=== PATIENT | female | born 1950 | race Caucasian/White ===

== ENCOUNTER 2017-01-06 02:18 | Inpatient (IN) ==
[2017-01-06] MEDS ORDERED: IPRATROPIUM/ALBUTEROL 3 ML AMPUL.NEB NEB ONE (02:36)
[2017-01-06] MEDS ORDERED: methylPREDNISolone SOD SUCC 125 MG/2 ML VIAL IV ONE (02:44)
[2017-01-06] MEDS ORDERED: 0.9 % SODIUM CHLORIDE 1,000 ML IV ONE (02:44)
[2017-01-06] MEDS ORDERED: ALBUTEROL SULFATE 5 MG/ML NEB SOLUTION BOTTLE NEB ONE (02:46)
[2017-01-06 03:56] LABS: Basophils # (Auto) 0.1 K/mcL (0.0-0.3); Basophils % (Auto) 0.5 % (0.0-2.0); Eosinophils # (Auto) 0.4 K/mcL (0.0-0.7); Eosinophils % (Auto) 2.4 % (0.0-7.0); Granulocytes % (Auto) 82.1 % (38.0-78.0); Lymphocytes # (Auto) 1.4 K/mcL (1.5-4.8); Lymphocytes % (Auto) 8.2 % (15.5-49.0); Mean Cell Volume 97.9 fL (80.0-100.0); Mean Corpuscular HGB Conc 31.5 g/dL (31.0-36.0); Mean Corpuscular Hemoglobin 30.8 pg (26.0-34.0); Monocytes # (Auto) 1.1 K/mcL (0.1-0.9); Monocytes % (Auto) 6.8 % (1.0-12.0); Platelet Count 378 K/mcL (140-440); Red Cell Distribution Width 16.2 % (11.5-14.5)
[2017-01-06 04:09] LABS: ALT/SGPT 8 U/l (0-40); Albumin 3.7 gm/dL (3.2-5.2); Albumin/Globulin Ratio 1.1 (1.0-2.3); Alkaline Phosphatase 89 U/L (39-117); Blood Urea Nitrogen 19 mg/dl (8-23); Magnesium 1.9 mg/dL (1.6-2.5)
[2017-01-06] MEDS ORDERED: VANCOMYCIN 1,000 MG in 0.9 % SODIUM CHLORIDE 250 ML IV ONE ×2 (04:31→05:43)
[2017-01-06] MEDS ORDERED: PIPERACILLIN SODIUM/TAZOBACTAM 3.375 GM in DEXTROSE 5% IN WATER 50 ML IV ONE ×2 (04:31→05:43)
--- NOTE | 2017-01-06 04:37 | Emergency Department Note ---
SOB HPI - General Chief Complaint: Shortness of Breath/Dyspnea Stated Complaint: Cough/Short of breath Time Seen by Provider: 01/06/17 02:36 Source: patient Limitations: no limitations - History of Present Illness 66-year-old female with a chronic cough for the last 6 months that has been slowly worsening. Currently it is tight and very productive such that she is coughing up large amounts of sputum for the last couple days. There is some blood-tinged to her mucus. She notes some nausea but not fever. She is on Coumadin for atrial fibrillation. Her current cough is so severe that she is unable to smoke much anymore nor eat - Related Data Home Medications Medication Instructions Recorded Confirmed Allopurinol [Zylopriim] 300 mg PO DAILY 01/06/17 01/06/17 Aspirin [Adult Low Dose Aspirin EC] 81 mg PO DAILY 01/06/17 01/06/17 Diltiazem HCl [Cartia Xt] 180 mg PO DAILY 01/06/17 01/06/17 Furosemide [Lasix] 40 mg PO BID 01/06/17 01/06/17 Levothyroxine [Synthroid] 137 mcg PO DAILY 01/06/17 01/06/17 Lisinopril [Zestril] 20 mg PO BID 01/06/17 01/06/17 Metolazone [Zaroxolyn] 2.5 mg PO DAILY 01/06/17 01/06/17 Metoprolol Tartrate 100 mg PO BID 01/06/17 01/06/17 Pravastatin Sodium [Pravachol] 80 mg PO HS 01/06/17 01/06/17 Warfarin Sodium [Jantoven] 2 mg PO DAILY 01/06/17 01/06/17 metFORMIN HCL [Glucophage] 500 mg PO BID 01/06/17 01/06/17 Allergies Allergy/AdvReac Type Severity Reaction Status Date / Time No Known Drug Allergies Allergy Verified 01/06/17 02:31 Review of Systems All systems ED: reviewed and negative except as stated. Past Medical History - Past Medical History Attestation: Yes: The following information was validated with the patient. Medical history: Reports: atrial fibrillation, CVA, diabetes, hyperlipidemia, hypertension, thyroid disease, other (gout) Surgical history ED: Reports: no surgical history - Social History smoking status: Current every day smoker Physical Exam Patient initially seen with severe cough such that she cannot even take a deep breath without coughing fit-respiratory distress. Hypoxia noted without nasal cannula oxygen. Respiratory status much improved DuoNeb treatment and after 1 hour continuous nebs of albuterol-finally able to breathe without coughing but continues to require oxygen to keep sats above 90% Normocephalic atraumatic. Conjunctive are clear sclerae nonicteric. No nasal discharge but some audible congestion. Oropharynx is pink and moist. Posterior pharynx is clear. Neck is supple without lymphadenopathy or thyromegaly. Heart is irregularly irregular rhythm. After continuous nebs her lungs still have end expiratory wheeze and rhonchi in all [place] however distress is mild now and her cough is irregular. Mild rales. Abdomen soft nontender nondistended. No pedal edema. +2 radial pulse. Alert oriented. No dysarthria or ataxia. Limitations: no limitations Course Vital Signs Temperature 97.8 F 01/06/17 02:19 Pulse Rate 103 H 01/06/17 02:19 Respiratory Rate 26 H 01/06/17 02:19 Pulse Oximetry (%) 87 L 01/06/17 02:19 Temperature 97.8 F 01/06/17 02:19 Pulse Rate 103 H 01/06/17 02:36 Respiratory Rate 26 H 01/06/17 02:36 Pulse Oximetry (%) 87 L 01/06/17 02:19 Shortness of Breath/Dyspnea - Lab Data Lab results reviewed: Yes I reviewed the patient's lab results. Result diagrams: 01/06/17 03:02 01/06/17 03:02 Lab Results 01/06/17 01/06/17 01/06/17 Range/Units 03:02 03:02 03:02 WBC 16.7 H (4.5-11.0) K/mcL RBC 3.30 L (4.00-5.20) M/mcL Hgb 10.2 L (12.0-15.0) g/dL Hct 32.3 L (36.0-48.0) % POC Hct 34.0 L (36.0-48.0) % MCV 97.9 (80.0-100.0) fL MCH 30.8 (26.0-34.0) pg MCHC 31.5 (31.0-36.0) g/dL RDW 16.2 H (11.5-14.5) % Plt Count 378 (140-440) K/mcL MPV 9.0 (7.4-10.4) fL Gran % 82.1 H (38.0-78.0) % Lymph % (Auto) 8.2 L (15.5-49.0) % [place] % (Auto) 6.8 (1.0-12.0) % Eos % (Auto) 2.4 (0.0-7.0) % Baso % (Auto) 0.5 (0.0-2.0) % Gran # 13.7 H (1.8-8.0) K/mcL Lymph # (Auto) 1.4 L (1.5-4.8) K/mcL [place] # (Auto) 1.1 H (0.1-0.9) K/mcL Eos # (Auto) 0.4 (0.0-0.7) K/mcL Baso # (Auto) 0.1 (0.0-0.3) K/mcL PT (11.9-14.5) sec INR (0.9-1.1) VBG Lactic Acid 1.5 (0.5-2.2) mmol/L POC Sodium 140 (133-145) mmol/L Sodium 141 (133-145) mmol/L POC Potassium 3.6 (3.3-5.1) mmol/L Potassium 3.6 (3.3-5.1) mmol/L POC Chloride 100 (96-108) mmol/L Chloride 99 (96-108) mmol/L Carbon Dioxide 28 (22-30) mmol/L POC Total CO2 29 (22-30) mmol/L Anion Gap 14.0 (8-16) POC BUN 18 (8-23) mg/dl BUN 19 (8-23) mg/dl Creatinine 1.1 (0.6-1.1) mg/dl POC Creatinine 1.2 H (0.6-1.1) mg/dl GFR Calculation 52 Glucose 163 H (70-105) mg/dL POC Glucose 162 H (70-105) mg/dL Calcium 9.2 (8.6-10.4) mg/dl POC WB Ioniz Calcium 1.17 (1.16-1.32) mmol/L Magnesium 1.9 (1.6-2.5) mg/dL Total Bilirubin 0.3 (0.0-1.0) mg/dL AST 13 (0-37) U/l ALT 8 (0-40) U/l Alkaline Phosphatase 89 (39-117) U/L NT-Pro-B Natriuret Pep 2447.0 H (0-125) pg/ml Total Protein 7.0 (5.9-8.4) gm/dL Albumin 3.7 (3.2-5.2) gm/dL Globulin 3.3 (2.2-3.7) gm/dL Albumin/Globulin Ratio 1.1 (1.0-2.3) 01/06/17 Range/Units 03:02 WBC (4.5-11.0) K/mcL RBC (4.00-5.20) M/mcL Hgb (12.0-15.0) g/dL Hct (36.0-48.0) % POC Hct (36.0-48.0) % MCV (80.0-100.0) fL MCH (26.0-34.0) pg MCHC (31.0-36.0) g/dL RDW (11.5-14.5) % Plt Count (140-440) K/mcL MPV (7.4-10.4) fL Gran % (38.0-78.0) % Lymph % (Auto) (15.5-49.0) % [place] % (Auto) (1.0-12.0) % Eos % (Auto) (0.0-7.0) % Baso % (Auto) (0.0-2.0) % Gran # (1.8-8.0) K/mcL Lymph # (Auto) (1.5-4.8) K/mcL [place] # (Auto) (0.1-0.9) K/mcL Eos # (Auto) (0.0-0.7) K/mcL Baso # (Auto) (0.0-0.3) K/mcL PT 25.6 H (11.9-14.5) sec INR 2.2 H (0.9-1.1) VBG Lactic Acid (0.5-2.2) mmol/L POC Sodium (133-145) mmol/L Sodium (133-145) mmol/L POC Potassium (3.3-5.1) mmol/L Potassium (3.3-5.1) mmol/L POC Chloride (96-108) mmol/L Chloride (96-108) mmol/L Carbon Dioxide (22-30) mmol/L POC Total CO2 (22-30) mmol/L Anion Gap (8-16) POC BUN (8-23) mg/dl BUN (8-23) mg/dl Creatinine (0.6-1.1) mg/dl POC Creatinine (0.6-1.1) mg/dl GFR Calculation Glucose (70-105) mg/dL POC Glucose (70-105) mg/dL Calcium (8.6-10.4) mg/dl POC WB Ioniz Calcium (1.16-1.32) mmol/L Magnesium (1.6-2.5) mg/dL Total Bilirubin (0.0-1.0) mg/dL AST (0-37) U/l ALT (0-40) U/l Alkaline Phosphatase (39-117) U/L NT-Pro-B Natriuret Pep (0-125) pg/ml Total Protein (5.9-8.4) gm/dL Albumin (3.2-5.2) gm/dL Globulin (2.2-3.7) gm/dL Albumin/Globulin Ratio (1.0-2.3) ABG shows pH 7.45 PCO2 44 PO2 60 - Radiology Data Radiology results reviewed: Yes I reviewed the patient's radiology results. Chest x-ray shows right upper lobe mass, but no other infiltrate. CT scan was ordered unfortunately our CT scan is inoperable at the moment this will have to be deferred Disposition Pt seen by [facility] REPA[facility]/PA only: No Clinical Impression: Acute exacerbation of chronic obstructive airways disease, Lung mass Summary: Patient was initially treated with DuoNeb while working up. Also started Solu- Medrol and normal saline IV fluids. Laboratory shows leukocytosis. X-ray consistent with COPD exacerbation and new right upper lung mass. Unable to get CT at the moment but is ordered. She is still requiring oxygen to keep O2 saturations up, despite 1 hour continuous albuterol nebs. Blood gases ordered. Zosyn and vancomycin started for a right upper lung mass/COPD exacerbation, which could be infectious versus neoplasm. Blood cultures ordered as well. Discussed situation with Dr. Olguin, hospitalist, who agreed to accept the patient for further care Disposition: Xfer As Inpt ([facility]) Condition: Serious Referrals: Chester Antonio MD [Primary Care Provider] -
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
[2017-01-06] MEDS ORDERED: NALOXONE HCL 0.4 MG/ML VIAL IV PRN (05:43)
[2017-01-06] MEDS ORDERED: HYDROcodone/APAP 5/325MG TABLET PO PRN (05:43)
[2017-01-06] MEDS ORDERED: ALBUTEROL SULFATE 2.5 MG/3 ML NEBULIZER NEB PRN (05:43)
[2017-01-06] MEDS ORDERED: DEXTROSE 50% 50 ML VIAL IV PRN (05:43)
[2017-01-06] MEDS ORDERED: DOCUSATE SODIUM 100 MG CAPSULE PO PRN (05:43)
[2017-01-06] MEDS ORDERED: PNEUMOCOCCAL 23-VAL P-SAC VAC 0.5 ML VIAL IM ONE (05:43)
[2017-01-06] MEDS ORDERED: PIPERACILLIN SODIUM/TAZOBACTAM 3.375 GM in DEXTROSE 5% IN WATER 50 ML IV SCH (05:43)
[2017-01-06] MEDS ORDERED: DEXTROSE 31 GM ORAL.SUSP PO PRN (05:43)
[2017-01-06] MEDS ORDERED: MAGNESIUM HYDROXIDE 30 ML ORAL.SUSP PO PRN (05:43)
[2017-01-06] MEDS ORDERED: ACETAMINOPHEN 325 MG TABLET PO PRN (05:43)
[2017-01-06] MEDS ORDERED: ONDANSETRON 4 MG/2 ML VIAL IV PRN (05:43)
[2017-01-06] MEDS: IPRATROPIUM/ALBUTEROL 3 ML AMPUL.NEB NEB SCH ×3 (07:29→19:26)
[2017-01-06] MEDS: AZITHROMYCIN 500 MG in DEXTROSE 5% IN WATER 250 ML IV SCH (09:00)
--- NOTE | 2017-01-06 10:03 | XRay Report ---
CLINICAL INFORMATION: Dyspnea COMPARISON: 11/24/2007 FINDINGS: The heart is mildly enlarged but unchanged. A 12 cm mass, or masslike infiltrate, has developed in the right suprahilar region extending into the right upper lobe. The remainder the lungs are clear. No effusions IMPRESSION: 12 cm mass or masslike infiltrate developing in the right suprahilar region extending the right upper lobe. Follow-up chest CT will be performed Interpreted and Authenticated by: Edilberto Owen 01/06/17
[2017-01-06] MEDS: NICOTINE 14 MG PATCH TOPICAL SCH (10:09)
[2017-01-06] MEDS: INSULIN LISPRO 1 UNIT/0.01 ML UNIT SQ SCH ×4 (10:22→20:30)
[2017-01-06] MEDS: methylPREDNISolone SOD SUCC 125 MG/2 ML VIAL IV SCH ×3 (10:22→21:31)
[2017-01-06] MEDS: LEVOTHYROXINE 25 MCG TABLET PO SCH (10:23)
[2017-01-06] MEDS: DILTIAZEM 180 MG CAP.XL.24H PO SCH (10:23)
[2017-01-06] MEDS: METOLAZONE 2.5 MG TABLET PO SCH (10:23)
[2017-01-06] MEDS: metFORMIN 500 MG TABLET PO SCH ×2 (10:23→17:09)
[2017-01-06] MEDS: ASPIRIN 81 MG TAB.CHEW PO SCH (10:23)
[2017-01-06] MEDS: LEVOTHYROXINE SODIUM 112 MCG TABLET PO SCH (10:23)
[2017-01-06] MEDS: LISINOPRIL 20 MG TABLET PO SCH ×2 (10:23→20:30)
[2017-01-06] MEDS: METOPROLOL TARTRATE 50 MG TABLET PO SCH ×2 (10:23→20:30)
[2017-01-06] MEDS: ALLOPURINOL 300 MG TABLET PO SCH (10:25)
--- NOTE | 2017-01-06 10:30 | Cat Scan Report ---
CLINICAL INFORMATION: Right upper lobe mass on plain film. Smoking history . Hypoxia COMPARISON: None TECHNIQUE: 0.625 mm axial slices were obtained from the lung apices through the bases without intravenous contrast. 2.5 mm Sagittal, coronal and axial reformatted images were processed and reviewed at bone, lung and soft tissue windows. 7 mm axial MIP images were also reconstructed to optimize pulmonary nodule detection.The exam was performed using radiation dose optimization techniques including, but not limited to, automated exposure control, adjustment of the mA and/or kV according to patient size and use of iterative reconstruction technique. FINDINGS: There is a 5 cm mass in the right suprahilar region completely obstructing the right upper lobe bronchus resulting in consolidated atelectasis of the entire right upper lobe. Findings suspicious for primary lung carcinoma. There is mild patchy groundglass airspace disease in the perihilar right middle and lower lobes. Minimal patchy airspace disease noted in the left lower lobe as well. Findings suspicious for mild aspiration. No additional nodules appreciated. There are few mildly enlarged lymph nodes in the right hilum and subcarinal region ranging up to 15 mm subcarinal region. Bones and soft tissues of the chest wall are normal. Images through the abdomen show 3-4 large laminated gallstones ranging up to 15 mm. The noncontrasted liver, adrenal glands, spleen and pancreas are normal. There is a 15 mm high attenuation lesion in the lateral cortex mid left kidney which measures 70 Hounsfield units and should represent a hyperdense cyst. IMPRESSION: 1. 5 cm mass in the right suprahilar region obstructing the right upper lobe bronchus resulting in complete consolidated atelectasis of the right upper lobe. Findings suspicious for primary lung carcinoma. Moderately enlarged lymph nodes in the right hilum and subcarinal region are suspicious for metastatic adenopathy. Suggest: CT-guided biopsy. If pathology is positive for malignancy, as expected, then PET/CT would be appropriate for staging 2. No definite distal metastases. 3. Mild patchy airspace disease in the hilar regions of the right middle and both lower lobes - suspect mild aspiration 4. Cholelithiasis 5. 15 mm high attenuation lesion lateral cortex mid left kidney which measures 70 Hounsfield units. It is almost certainly a hyperdense renal cyst Interpreted and Authenticated by: Edilberto Owen 01/06/17
[2017-01-06] MEDS: FUROSEMIDE 40 MG TABLET PO SCH ×2 (11:19→20:30)
[2017-01-06] MEDS: PIPERACILLIN SODIUM/TAZOBACTAM 3.375 GM in DEXTROSE 5% IN WATER 100 ML IV SCH ×3 (12:00→23:32)
[2017-01-06] MEDS ORDERED: WARFARIN 2 MG TABLET PO SCH (14:00)
[2017-01-06] MEDS: SIMVASTATIN 10 MG TABLET PO SCH (20:30)
[2017-01-07] MEDS: IPRATROPIUM/ALBUTEROL 3 ML AMPUL.NEB NEB SCH ×4 (00:23→19:16)
[2017-01-07 05:27] LABS: Basophils # (Auto) 0 K/mcL (0.0-0.3); Basophils % (Auto) 0 % (0.0-2.0); Eosinophils # (Auto) 0 K/mcL (0.0-0.7); Eosinophils % (Auto) 0 % (0.0-7.0); Granulocytes % (Auto) 94.9 % (38.0-78.0); Lymphocytes # (Auto) 0.9 K/mcL (1.5-4.8); Lymphocytes % (Auto) 3.9 % (15.5-49.0); Mean Cell Volume 97.4 fL (80.0-100.0); Mean Corpuscular HGB Conc 31.9 g/dL (31.0-36.0); Mean Corpuscular Hemoglobin 31.1 pg (26.0-34.0); Monocytes # (Auto) 0.3 K/mcL (0.1-0.9); Monocytes % (Auto) 1.2 % (1.0-12.0); Platelet Count 323 K/mcL (140-440); RBC 3.04 M/mcL (4.00-5.20); Red Cell Distribution Width 16.3 % (11.5-14.5)
[2017-01-07 05:48] LABS: ALT/SGPT 9 U/l (0-40); Albumin 3.3 gm/dL (3.2-5.2); Albumin/Globulin Ratio 0.9 (1.0-2.3); Alkaline Phosphatase 82 U/L (39-117); Bilirubin,Direct < 0.2 mg/dL (0.0-0.3); Blood Urea Nitrogen 29 mg/dl (8-23); Gamma Glutamyl Transpeptidase 22 U/L (5-36); Magnesium 1.8 mg/dL (1.6-2.5); Uric Acid 7.4 mg/dL (2.5-8.0)
[2017-01-07] MEDS: PIPERACILLIN SODIUM/TAZOBACTAM 3.375 GM in DEXTROSE 5% IN WATER 100 ML IV SCH ×3 (05:48→18:36)
[2017-01-07] MEDS: methylPREDNISolone SOD SUCC 125 MG/2 ML VIAL IV SCH (05:48)
[2017-01-07] MEDS: LEVOTHYROXINE 25 MCG TABLET PO SCH (07:50)
[2017-01-07] MEDS: LEVOTHYROXINE SODIUM 112 MCG TABLET PO SCH (07:50)
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
[2017-01-07] MEDS: INSULIN LISPRO 1 UNIT/0.01 ML UNIT SQ SCH ×4 (09:02→20:44)
[2017-01-07] MEDS: metFORMIN 500 MG TABLET PO SCH ×2 (09:04→18:01)
[2017-01-07] MEDS: METOPROLOL TARTRATE 50 MG TABLET PO SCH ×2 (09:05→20:36)
[2017-01-07] MEDS: ALLOPURINOL 300 MG TABLET PO SCH (09:06)
[2017-01-07] MEDS: DILTIAZEM 180 MG CAP.XL.24H PO SCH (09:07)
[2017-01-07] MEDS: ASPIRIN 81 MG TAB.CHEW PO SCH (09:08)
[2017-01-07] MEDS: METOLAZONE 2.5 MG TABLET PO SCH (09:08)
[2017-01-07] MEDS: LISINOPRIL 20 MG TABLET PO SCH ×2 (09:08→20:36)
[2017-01-07] MEDS: NICOTINE 14 MG PATCH TOPICAL SCH (09:15)
[2017-01-07] MEDS: FUROSEMIDE 40 MG TABLET PO SCH ×2 (09:45→20:43)
[2017-01-07] MEDS: AZITHROMYCIN 500 MG in DEXTROSE 5% IN WATER 250 ML IV SCH (09:45)
[2017-01-07] MEDS ORDERED: PNEUMOCOCCAL 23-VAL P-SAC VAC 0.5 ML VIAL IM ONE (10:00)
[2017-01-07] MEDS: predniSONE 20 MG TABLET PO SCH (12:01)
[2017-01-07] MEDS: SIMVASTATIN 10 MG TABLET PO SCH (20:37)
[2017-01-08] MEDS: PIPERACILLIN SODIUM/TAZOBACTAM 3.375 GM in DEXTROSE 5% IN WATER 100 ML IV SCH ×4 (00:03→17:41)
[2017-01-08] MEDS: IPRATROPIUM/ALBUTEROL 3 ML AMPUL.NEB NEB SCH ×4 (01:19→19:39)
[2017-01-08 05:37] LABS: Basophils # (Auto) 0 K/mcL (0.0-0.3); Basophils % (Auto) 0 % (0.0-2.0); Eosinophils # (Auto) 0 K/mcL (0.0-0.7); Eosinophils % (Auto) 0 % (0.0-7.0); Granulocytes % (Auto) 94.6 % (38.0-78.0); Lymphocytes # (Auto) 0.9 K/mcL (1.5-4.8); Lymphocytes % (Auto) 3.3 % (15.5-49.0); Mean Cell Volume 96.4 fL (80.0-100.0); Mean Corpuscular HGB Conc 32.9 g/dL (31.0-36.0); Mean Corpuscular Hemoglobin 31.7 pg (26.0-34.0); Monocytes # (Auto) 0.6 K/mcL (0.1-0.9); Monocytes % (Auto) 2.1 % (1.0-12.0); Platelet Count 360 K/mcL (140-440); RBC 3.02 M/mcL (4.00-5.20); Red Cell Distribution Width 16.3 % (11.5-14.5)
[2017-01-08] MEDS: LEVOTHYROXINE 25 MCG TABLET PO SCH (06:48)
[2017-01-08] MEDS: LEVOTHYROXINE SODIUM 112 MCG TABLET PO SCH (06:48)
[2017-01-08 07:07] LABS: ALT/SGPT 10 U/l (0-40); Albumin 3.5 gm/dL (3.2-5.2); Albumin/Globulin Ratio 1.3 (1.0-2.3); Alkaline Phosphatase 74 U/L (39-117); Bilirubin,Direct < 0.2 mg/dL (0.0-0.3); Blood Urea Nitrogen 46 mg/dl (8-23); Gamma Glutamyl Transpeptidase 22 U/L (5-36); Magnesium 1.8 mg/dL (1.6-2.5)
[2017-01-08] MEDS ORDERED: metFORMIN 500 MG TABLET PO SCH ×2 (08:00→17:30)
[2017-01-08] MEDS: INSULIN LISPRO 1 UNIT/0.01 ML UNIT SQ SCH ×4 (08:14→20:47)
[2017-01-08] MEDS: ASPIRIN 81 MG TAB.CHEW PO SCH (08:15)
[2017-01-08] MEDS: ALLOPURINOL 300 MG TABLET PO SCH (08:15)
[2017-01-08] MEDS: DILTIAZEM 180 MG CAP.XL.24H PO SCH (08:15)
[2017-01-08] MEDS: predniSONE 20 MG TABLET PO SCH (08:15)
[2017-01-08] MEDS: METOPROLOL TARTRATE 50 MG TABLET PO SCH ×2 (08:15→20:48)
[2017-01-08] MEDS: POTASSIUM CHLORIDE 20 MEQ TABLET PO SCH ×2 (08:15→13:04)
[2017-01-08] MEDS: NICOTINE 14 MG PATCH TOPICAL SCH (10:07)
[2017-01-08] MEDS: AZITHROMYCIN 500 MG in DEXTROSE 5% IN WATER 250 ML IV SCH (10:20)
[2017-01-08] MEDS ORDERED: ACETAMINOPHEN 325 MG TABLET PO PRN (10:39)
[2017-01-08] MEDS ORDERED: DEXTROSE 50% 50 ML VIAL IV PRN ×2 (10:39)
[2017-01-08] MEDS ORDERED: MAGNESIUM HYDROXIDE 30 ML ORAL.SUSP PO PRN (10:39)
[2017-01-08] MEDS ORDERED: ALBUTEROL SULFATE 2.5 MG/3 ML NEBULIZER NEB PRN (10:39)
[2017-01-08] MEDS ORDERED: 0.9 % SODIUM CHLORIDE 500 ML IV ONE (10:39)
[2017-01-08] MEDS ORDERED: HYDROcodone/APAP 5/325MG TABLET PO PRN (10:39)
[2017-01-08] MEDS ORDERED: ONDANSETRON 4 MG/2 ML VIAL IV PRN (10:39)
[2017-01-08] MEDS ORDERED: DOCUSATE SODIUM 100 MG CAPSULE PO PRN (10:39)
[2017-01-08] MEDS ORDERED: NALOXONE HCL 0.4 MG/ML VIAL IV PRN (10:39)
[2017-01-08] MEDS ORDERED: DEXTROSE 31 GM ORAL.SUSP PO PRN ×2 (10:39)
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
[2017-01-08] MEDS ORDERED: POTASSIUM CHLORIDE 20 MEQ TABLET PO SCH (13:00)
[2017-01-08] MEDS: SIMVASTATIN 10 MG TABLET PO SCH (20:48)
[2017-01-09] MEDS: PIPERACILLIN SODIUM/TAZOBACTAM 3.375 GM in DEXTROSE 5% IN WATER 100 ML IV SCH ×4 (00:19→17:09)
[2017-01-09] MEDS: IPRATROPIUM/ALBUTEROL 3 ML AMPUL.NEB NEB SCH ×4 (00:19→19:05)
[2017-01-09 05:35] LABS: Basophils # (Auto) 0 K/mcL (0.0-0.3); Basophils % (Auto) 0 % (0.0-2.0); Eosinophils # (Auto) 0 K/mcL (0.0-0.7); Eosinophils % (Auto) 0 % (0.0-7.0); Granulocytes % (Auto) 88.3 % (38.0-78.0); Lymphocytes # (Auto) 1.1 K/mcL (1.5-4.8); Lymphocytes % (Auto) 6.2 % (15.5-49.0); Mean Cell Volume 95.6 fL (80.0-100.0); Mean Corpuscular HGB Conc 31.8 g/dL (31.0-36.0); Mean Corpuscular Hemoglobin 30.4 pg (26.0-34.0); Monocytes % (Auto) 5.5 % (1.0-12.0); Platelet Count 369 K/mcL (140-440); RBC 3.12 M/mcL (4.00-5.20); Red Cell Distribution Width 15.9 % (11.5-14.5)
[2017-01-09 05:49] LABS: ALT/SGPT 15 U/l (0-40); Albumin 3.2 gm/dL (3.2-5.2); Albumin/Globulin Ratio 1.2 (1.0-2.3); Alkaline Phosphatase 70 U/L (39-117); Bilirubin,Direct < 0.2 mg/dL (0.0-0.3); Blood Urea Nitrogen 54 mg/dl (8-23); Gamma Glutamyl Transpeptidase 23 U/L (5-36); Magnesium 1.8 mg/dL (1.6-2.5); Uric Acid 8.1 mg/dL (2.5-8.0)
[2017-01-09] MEDS: LEVOTHYROXINE SODIUM 112 MCG TABLET PO SCH (07:38)
[2017-01-09] MEDS: LEVOTHYROXINE 25 MCG TABLET PO SCH (07:38)
[2017-01-09] MEDS: INSULIN LISPRO 1 UNIT/0.01 ML UNIT SQ SCH ×4 (07:53→22:06)
[2017-01-09] MEDS ORDERED: predniSONE 20 MG TABLET PO SCH (08:00)
[2017-01-09] MEDS: DILTIAZEM 180 MG CAP.XL.24H PO SCH (08:48)
[2017-01-09] MEDS: ASPIRIN 81 MG TAB.CHEW PO SCH (08:48)
[2017-01-09] MEDS: NICOTINE 14 MG PATCH TOPICAL SCH (08:50)
[2017-01-09] MEDS ORDERED: ALLOPURINOL 300 MG TABLET PO SCH (09:00)
[2017-01-09] MEDS: METOPROLOL TARTRATE 50 MG TABLET PO SCH ×2 (09:01→22:05)
[2017-01-09] MEDS: POTASSIUM CHLORIDE 30 MEQ in 0.45 % SODIUM CHLORIDE 1,000 ML IV SCH ×3 (09:02→22:33)
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
[2017-01-09] MEDS ORDERED: POTASSIUM CHLORIDE 40 MEQ in DEXTROSE 5% IN WATER 500 ML IV ONE (20:35)
[2017-01-09] MEDS ORDERED: DEXTROSE 50% 50 ML VIAL IV PRN (20:37)
[2017-01-09] MEDS ORDERED: DEXTROSE 31 GM ORAL.SUSP PO PRN (20:37)
[2017-01-09] MEDS: SIMVASTATIN 10 MG TABLET PO SCH (22:06)
[2017-01-09] MEDS ORDERED: POTASSIUM CHLORIDE 20 MEQ/10 ML VIAL IV ONE (22:32)
[2017-01-10] MEDS: PIPERACILLIN SODIUM/TAZOBACTAM 3.375 GM in DEXTROSE 5% IN WATER 100 ML IV SCH ×3 (00:12→11:18)
[2017-01-10] MEDS: IPRATROPIUM/ALBUTEROL 3 ML AMPUL.NEB NEB SCH ×3 (00:24→13:50)
[2017-01-10] MEDS: POTASSIUM CHLORIDE 30 MEQ in 0.45 % SODIUM CHLORIDE 1,000 ML IV SCH ×2 (04:53→17:40)
[2017-01-10 06:45] LABS: Basophils # (Auto) 0 K/mcL (0.0-0.3); Basophils % (Auto) 0 % (0.0-2.0); Eosinophils # (Auto) 0 K/mcL (0.0-0.7); Eosinophils % (Auto) 0.2 % (0.0-7.0); Granulocytes % (Auto) 83.5 % (38.0-78.0); Lymphocytes # (Auto) 1.3 K/mcL (1.5-4.8); Lymphocytes % (Auto) 8.7 % (15.5-49.0); Mean Cell Volume 95.6 fL (80.0-100.0); Mean Corpuscular HGB Conc 32.1 g/dL (31.0-36.0); Mean Corpuscular Hemoglobin 30.7 pg (26.0-34.0); Monocytes # (Auto) 1.1 K/mcL (0.1-0.9); Monocytes % (Auto) 7.6 % (1.0-12.0); Platelet Count 389 K/mcL (140-440); RBC 3.38 M/mcL (4.00-5.20); Red Cell Distribution Width 16.5 % (11.5-14.5)
[2017-01-10 07:12] LABS: ALT/SGPT 19 U/l (0-40); Albumin 3.6 gm/dL (3.2-5.2); Albumin/Globulin Ratio 1.3 (1.0-2.3); Alkaline Phosphatase 69 U/L (39-117); Bilirubin,Direct < 0.2 mg/dL (0.0-0.3); Blood Urea Nitrogen 43 mg/dl (8-23); Gamma Glutamyl Transpeptidase 27 U/L (5-36); Magnesium 2.1 mg/dL (1.6-2.5); Uric Acid 6.8 mg/dL (2.5-8.0)
[2017-01-10] MEDS: LEVOTHYROXINE 25 MCG TABLET PO SCH (07:27)
[2017-01-10] MEDS: LEVOTHYROXINE SODIUM 112 MCG TABLET PO SCH (07:27)
[2017-01-10] MEDS ORDERED: glipiZIDE 2.5 MG TAB.XL.24H PO SCH (07:30)
[2017-01-10] MEDS: INSULIN LISPRO 1 UNIT/0.01 ML UNIT SQ SCH ×2 (07:39→12:30)
[2017-01-10] MEDS ORDERED: predniSONE 20 MG TABLET PO SCH (08:00)
[2017-01-10] MEDS: DILTIAZEM 180 MG CAP.XL.24H PO SCH (08:45)
[2017-01-10] MEDS: METOPROLOL TARTRATE 50 MG TABLET PO SCH (08:49)
[2017-01-10] MEDS: ASPIRIN 81 MG TAB.CHEW PO SCH (08:50)
[2017-01-10] MEDS: NICOTINE 14 MG PATCH TOPICAL SCH (10:46)
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
== END 2017-01-10 15:00 | disposition home or self-care (01) | DRG 179 ==
LOC: ED 02:18 → ICU 05:29 → MEDSUR 01-08 15:10
PROVIDERS: ADMIT Internal Medicine; ATTEND Internal Medicine